=== PATIENT | female | born 1985 | race Caucasian/White ===

== ENCOUNTER 2017-07-29 09:11 | Emergency (ER) | payer OTHER ==
[~2017-07-29] VITALS: Ht 165.1 cm; Wt 77.9 kg
[~2017-07-29 09:11] MED LIST: CEFD300C37 PO; CYCL5TAB PO; DOCU-131 PO; GABA300C10 PO; HYDR-3240 PO; IBUP-11 PO; OXYC-302 PO
[2017-07-29 09:45] LABS: BASOPHILS % (AUTO) 0 % (0-1); EOSINOPHILS # (AUTO) 0.01 x10^3/uL (0-0.4); EOSINOPHILS % (AUTO) 0 % (1-7); LYMPHOCYTES # (AUTO) 0.87 x10^3/uL (1-3.4); LYMPHOCYTES % (AUTO) 10 % (22-44); MD NO; MEAN CORPUSCULAR HEMOGLOBIN 28.2 pg (27.0-34.8); MEAN CORPUSCULAR VOLUME 85.5 fL (80-100); MEAN PLATELET VOLUME 9.8 fL (7.4-10.4); MONOCYTES # (AUTO) 0.71 x10^3/uL (0.2-0.8); MONOCYTES % (AUTO) 9 % (2-9); NEUTROPHILS # (AUTO) 6.77 x10^3/uL (1.8-6.8); NEUTROPHILS % (AUTO) 81 % (42-75); PLATELET COUNT 238 x10^3/uL (130-400); RED BLOOD COUNT 4.69 x10^6/uL (3.82-5.3); RED CELL DISTRIBUTION WIDTH 14.4 % (9.6-15.2)
[2017-07-29] MEDS ORDERED: SODIUM CHLORIDE 0.9% 1,000ML IVBOLUS ONE ×2 (10:00→11:00)
[2017-07-29 10:08] LABS: CHLORIDE 108 mmol/L (98-107)
[2017-07-29 10:28] LABS: ANION GAP 10 mmol/L (5-15); CALCIUM 8.6 mg/dL (8.5-10.1); CREATININE 0.83 mg/dL (0.55-1.02)
[2017-07-29 10:45] LABS: CULTURE INDICATED? YES; MICROSCOPIC INDICATED
[2017-07-29] MEDS ORDERED: HYDROcodone/APAP 7.5-325MG/15ML UDC PO STA (10:49)
[2017-07-29] MEDS ORDERED: HYDROcodone/APAP 7.5-325MG/15ML UDC ONE (11:09)
[2017-07-29 11:58] VITALS: BP 126/78
[2017-07-29] MEDS ORDERED: ACETAMINOPHEN 500 MG TABLET ONE (12:14)
[2017-07-29] MEDS ORDERED: ACETAMINOPHEN 500 MG TABLET PO ONE (13:00)
== END 2017-07-29 13:07 | disposition home or self-care (01) ==
LOC: ED 12:55
DX: B34.9 Viral infection, unspecified (principal); R00.0 Tachycardia, unspecified
CPT/HCPCS: 36415; 80048; 81001; 85025; 87086; 93005; 96360; 96361; 99285; J7030